=== PATIENT | female | born 1985 | race Caucasian/White ===

== ENCOUNTER 2016-08-31 20:21 | Emergency (ER) | payer MEDICAID, OTHER ==
[~2016-08-31] VITALS: Ht 162.6 cm; Wt 58.0 kg
[2016-08-31 20:27] VITALS: Ht 162.6 cm; Wt 58.0 kg
[2016-08-31] MEDS ORDERED: ACETAMINOPHEN 500 MG TAB PO STA (22:02)
[2016-08-31] MEDS ORDERED: KETOROLAC 30 MG INJ IV STA (22:02)
[2016-08-31] MEDS ORDERED: CLIN-73 PO (22:11)
[2016-08-31] MEDS ORDERED: IBUP-1542 PO (22:11)
--- NOTE | 2016-08-31 22:23 | ERD ---
ER Documentation Chief Complaint Date/Time DATE: 08/31/16 TIME: 22:17 Chief Complaint fever/headache/right breast pain x 2 days HPI 30-year-old female presents here in emergency department for complaints of right breast pain for 2 days, started to have fever headache bodyaches for 2 days. Patient describes the pain as throbbing pain, 8/10 scale, worse upon touching the right breast accompanied by the other symptoms she did not take any medications. And symptoms. Patient breast feeds regularly 9-month-old baby, started to have the right breast pain after breast-feeding episode. Patient denies any redness or swelling. Patient started to have fever. ROS All systems reviewed and are negative except as per history of present illness. Medications Home Meds Active Scripts Ibuprofen* (Motrin*) 600 Mg Tab, 600 MG PO Q6H Y for PAIN AND OR ELEVATED TEMP, #30 TAB Prov:DONNELL DELA CRUZ NP 08/31/16 Clindamycin Hcl* (Clindamycin Hcl*) 300 Mg Capsule, 300 MG PO TID for 10 Days, CAP Prov:DONNELL DELA CRUZ [employer] 08/31/16 Allergies Allergies: Coded Allergies: No Known Allergy (Unverified , 08/31/16) PMhx/Soc Medical and Surgical Hx: pt denies Medical Hx History of Surgery: Yes (CHOLECYSECTOMY) Hx Alcohol Use: No Hx Substance Use: No Hx Tobacco Use: No Smoking Status: Never smoker FmHx Family History: No coronary disease, No diabetes, No other Physical Exam Vitals Vital Signs Date Time Temp Pulse Resp B/P Pulse Ox O2 Delivery O2 Flow Rate FiO2 08/31/16 23:34 99.4 08/31/16 20:27 102.2 115 20 117/71 97 Physical Exam GENERAL: The patient is well developed and appropriate for usual state of health, in no apparent distress. CHEST: Clear to auscultation bilaterally. There are no rales, wheezes or rhonchi. Noted tenderness on palpation the right breast, no fluctuance noted, mild erythema noted, no deformity discharge noted. No deformity noted. Left breast is normal, no discharge noted, nontender on palpation. HEART: Regular rate and rhythm. No murmurs, clicks, rubs or gallops. No S3 or S4. ABDOMEN: Soft, nontender and nondistended. Good bowel sounds. No rebound or guarding. No gross peritonitis. No gross organomegaly or masses. No Hernandez sign or McBurney point tenderness. BACK: No midline or flank tenderness. EXTREMITIES: Equal pulses bilaterally. There is no peripheral clubbing, cyanosis or edema. No focal swelling or erythema. Full range of motion. Grossly neurovascularly intact. NEURO: Alert and oriented. Cranial nerves 2-12 intact. Motor strength in all 4 extremities with 5/5 strength. Sensation grossly intact. Normal speech and gait. SKIN: There is no apparent rash or petechia. The skin is warm and dry. HEMATOLOGIC AND LYMPHATIC: There is no evidence of excessive bruising or lymphedema. No gross cervical, axillary, or inguinal lymphadenopathy. Results 24 hrs Current Medications Medications (Trade) Dose Ordered Sig/Ewelina Route PRN Reason Start Time Stop Time Status Last Admin Dose Admin Clindamycin HCl/ Dextrose (Cleocin 600 Mg/ D5W (Pmx)) 50 ml @ 50 mls/hr ONCE IVPB 08/31/16 22:30 08/31/16 23:29 DC 08/31/16 22:45 Ketorolac Tromethamine (Toradol) 30 mg ONCE STAT IV 08/31/16 22:02 08/31/16 22:03 DC 08/31/16 22:24 Acetaminophen (Tylenol Tab) 500 mg ONCE STAT PO 08/31/16 22:02 08/31/16 22:03 DC 08/31/16 22:24 IV clindamycin was given to the patient up with infection, tolerated medication well.Patient was given medicines for fever control here in the emergency department. After treatment, patient temperature improved and lower. Patient appears well and is hemodynamically stable. Procedures/MDM Medical decision making: Patient's symptoms are likely consistent with mastitis , this time, no symptoms of any soft tissue abscess, no fluctuance noted, no purulent discharge from nipple area. No deformity noted. Low suspicion for infectious breast cancer. Low suspicion for sepsis at this time, patient presents hemodynamically stable. Patient's fever is most likely from the infection. Patient was given prescription for clindamycin, ibuprofen, is advised to return in 2 days for reevaluation of symptoms. Patient was advised to return sooner for any worsening symptoms. Departure Diagnosis: Primary Impression: Mastitis Condition: Stable Patient Instructions: Mastitis Additional Instructions: return 2 days for recheck, take meds as prescribed, warm compress on affected area DONNELL DELA CRUZ NP Aug 31, 2016 22:23
[2016-08-31] MEDS ORDERED: CLINDAMYCIN 600 MG/D5W (PMX) 50 ML IVPB SCH (22:30)
[2016-08-31 23:34] VITALS: TEMP 99.4
== END 2016-08-31 23:34 | disposition home or self-care (01) ==
LOC: FTE 20:21
DX: N61.0 Mastitis without abscess (principal)
CPT/HCPCS: 96374; 96375; J1885; Z7502; Z7610

== ENCOUNTER 2016-09-02 07:51 | Emergency (ER) | payer OTHER ==
[~2016-09-02] VITALS: Wt 56.0 kg
[~2016-09-02 07:51] MED LIST: CLIN-73 PO; IBUP-1542 PO
--- NOTE | 2016-09-02 08:43 | ERD ---
ER Documentation Chief Complaint Date/Time DATE: 09/02/16 TIME: 08:40 Chief Complaint R BREAST PAIN X 4 DAYS HPI This is a 30-year-old female who breast feeding her 9-month-old baby presents with right breast pain since August 29, 2016. Patient was seen here on August 31, 2016 and was diagnosed with mastitis and given clindamycin. Patient was told by the provider to return for a breast ultrasound. Patient states that pain has improved, she rates it mild to moderate in severity. Patient states that her symptoms have improved and she is compliant with her clindamycin for the past 2 days. Patient denies any fevers. Patient states that she is pumping and dumping while taking antibiotics. ROS All systems reviewed and are negative except as per history of present illness. Medications Home Meds Active Scripts Ibuprofen* (Motrin*) 600 Mg Tab, 600 MG PO Q6H Y for PAIN AND OR ELEVATED TEMP, #30 TAB Prov:DONNELL DELA CRUZ NP 08/31/16 Clindamycin Hcl* (Clindamycin Hcl*) 300 Mg Capsule, 300 MG PO TID for 10 Days, CAP Prov:DONNELL DELA CRUZ NP 08/31/16 Allergies Allergies: Coded Allergies: No Known Allergy (Unverified , 08/31/16) PMhx/Soc History of Surgery: Yes (CHOLECYSECTOMY) Hx Alcohol Use: No Hx Substance Use: No Hx Tobacco Use: No Physical Exam Vitals Vital Signs Date Time Temp Pulse Resp B/P Pulse Ox O2 Delivery O2 Flow Rate FiO2 09/02/16 07:57 98.3 80 18 100/56 99 Physical Exam GENERAL: WD/WN, in no apparent distress, non-toxic appearing HENT: NC/AT EYES: Conjunctiva normal NECK: Supple. No meningeal signs PULM: Clear to auscultation bilaterally. Normal labored breathing CV: Regular rate and rhythm, no murmurs BREAST: mild tenderness in right breast, milk from nipple when extracted, no purulent discharge, no erythema or fluctuance noted GI: Soft, non tender, non distended. Normal bowel sounds BACK: No masses EXT: No clubbing, cyanosis, or edema. NEURO: Awake and Alert SKIN: No petechiae or rashes PSYCH: Normal mood Procedures/MDM This is a 30-year-old female who breast feeding her 9-month-old baby presents with right breast pain for 4 days. I reviewed patient's past chart and she was seen here on August 31, 2016 and was diagnosed with myositis and given clindamycin. Patient was told to return for a breast ultrasound. Patient 's symptoms are improving with the antibiotic for 1 day. There was no evidence of erythema, induration, purulent discharge on examination. My clinical suspicion is low for mastitis or breast abscess today due to physical examination and testing, however discussed to continue her antibiotic clindamycin for 5 days. Differentials include but not limited to severe engorgement, mastitis,plugged duct, galactocele, vs other. Patient is stable for discharge, I discussed to follow-up with her primary care physician tomorrow , patient understands and agrees with this plan. Breast ultrasound of the right breast was done and radiologist stated: Ultrasound of the breast shows no evidence of mass,, cyst, fluid collection or other sonographic abnormality. There are multiple prominent subareolar ducts consistent with lactating breast. No sonographic evidence of malignancy. Prominent subareolar ducts consistent with lactating breast. BIRADS 1 (Negative). Recommend clinical management. Departure Diagnosis: Primary Impression: Breast pain Condition: Stable TIKI JACOBS PA-C Sep 02, 2016 08:43
--- NOTE | 2016-09-02 08:53 | RADRPT ---
PROCEDURE: Right breast ultrasound, complete. CLINICAL INDICATION: 30 year-old breast-feeding female with right breast pain. TECHNIQUE: Whole breast ultrasound is performed. COMPARISON: None FINDINGS: Ultrasound of the breast shows no evidence of mass, cyst, fluid collection or other sonographic abno rmality. There are multiple prominent subareolar ducts consistent with lactating breast. IMPRESSION: No sonographic evidence of malignancy. Prominent subareolar ducts consistent with lactating breast. BIRADS 1 (Negative). Recommend clinical management. RPTAT: HH .Corey Rodriguez MD, Date Time Electronically viewed and signed by .Corey Rodriguez MD, on 09/02/2016 08:53 .L/
== END 2016-09-02 10:00 | disposition home or self-care (01) ==
LOC: FTE 07:51
DX: N64.4 Mastodynia (principal)
CPT/HCPCS: 76642; Z7502